=== PATIENT | male | born 1995 | race Caucasian/White ===

== ENCOUNTER 2023-03-04 23:05 | Emergency (ER) | payer MEDICAID ==
[~2023-03-04] VITALS: Ht 182.9 cm; Wt 99.0 kg
[2023-03-04 23:29] LABS: Basophils # (auto) 0 10 ^3/uL (0-0.2); Basophils % (auto) 0.5 % (0.0-2.0); Eosinophils # (auto) 0.1 10 ^3/uL (0-0.8); Eosinophils % (auto) 2.4 % (0.0-7.0); Hematocrit 48.3 % (41.0-53.0); Hemoglobin 16.8 g/dL (13.5-17.5); Lymphocytes # (auto) 2.3 10 ^3/uL (0.4-5.4); Lymphocytes % (auto) 39.9 % (10.0-50.0); Mean Corpuscular Hemoglobin 29.9 pg (28.0-32.0); Mean Corpuscular Hgb Conc. 34.9 g/dL (32.0-36.0); Mean Corpuscular Volume 85.7 fL (80.0-100.0); Monocytes # (auto) 0.5 10 ^3/uL (0-1.3); Monocytes % (auto) 9.2 % (0.0-12.0); Neutrophils # (auto) 2.8 10 ^3/uL (1.6-8.6); Nucleated Red Blood Cells % 0.2 %; Red Blood Cells 5.64 10^6/uL (4.5-5.90); Red Cell Distribution Width 13.4 % (11.8-14.3); White Blood Cell 5.8 10^3/uL (4.4-10.8)
[2023-03-04 23:47] LABS: Albumin 4.3 g/dL (3.4-5.0); BUN/Creatinine Ratio 18.5 (10.0-20.0); Calcium 9.7 mg/dL (8.5-10.1); Magnesium 2.3 mg/dL (1.6-2.6)
[2023-03-04 23:50] LABS: Bilirubin, Total 0.7 mg/dL (0.2-1.0)
[2023-03-04 23:52] LABS: INR 1.02 (0.9-1.15); Partial Thromboplastin Time 28.6 sec (24.6-33.4)
[2023-03-05 05:38] VITALS: BP 104/67
== END 2023-03-05 05:48 | disposition home or self-care (01) ==
LOC: ER 23:05
DX: R07.89 Other chest pain (principal); R06.02 Shortness of breath; Z79.899 Other long term (current) drug therapy
CPT/HCPCS: 36415; 71045; 80053; 83735; 83880; 84484; 85025; 85610; 85730; 93005

== ENCOUNTER 2024-09-14 19:05 | Emergency (ER) | payer MEDICAID ==
[~2024-09-14] VITALS: Ht 182.9 cm; Wt 109.0 kg
--- NOTE | 2024-09-14 19:41 | ED.PDOC ---
History of Present Illness HPI Comments 28 y/o M, with a Hx of marijuana use, presents with c/o left ankle and foot pain, swelling, and deformity s/p fall injury, today. Patient endorses on falling and and landing and injuring his left foot and ankle after jumping of a wall, while playing with his pet dog at home, at around 1820, today. Patient re ports no additional injuries, lost of consciousness, or prior symptoms at time of incident. Patient informs of no additional pertinent or relevant Hx. Denies having any weakness, numbness, tingling, or other associated symptoms or modifiers at this time. Time Seen by MD: 19:30 Primary Care Provider: unknown Reviewed Notes: Nurses Notes, Medications, Allergies Allergies: Coded Allergies: NO KNOWN ALLERGIES (Unverified , 03/04/23) Information Source: Patient Mode of Arrival: Wheelchair Severity: Moderate Timing: Hours Duration: Since onset Prehospital treatment: None Past Medical History PAST MEDICAL HISTORY: Denies Surgical History: Denies all surgeries Family History Family History: Reviewed,noncontributory to illness, No family hx of Cancer, No family hx of Heart devi, No family hx ofKidney devi, No family hx of Liver devi, No family hx of Lung devi, No family hx of Stroke, Unknown, Family hx of DM, Family hx of HTN Family History (Other): HLD Social History Smoker: Non-Smoker Alcohol: Denies ETOH Use Drugs: Marijuana Lives In: Home Constitutional: denies: chills, diaphoresis, fatigue, fever, malaise, sweats, weakness, others EENTM: denies: blurred vision, double vision, ear bleeding, ear discharge, ear drainage, ear pain, ear ringing, eye pain, eye redness, hearing loss, mouth pain, mouth swelling, nasal discharge, nose bleeding, nose congestion, nose pain, photophobia, tearing, throat pain, throat swelling, voice changes, others Respiratory: denies: cough, hemoptysis, orthopnea, SOB at rest, shortness of breath, SOB with excertion, stridor, wheezing, others Cardiovascular: denies: chest pain, dizzy spells, diaphoresis, Dyspnea on exertion, edema, irregular heart beat, left arm pain, lightheadedness, palpitations, PND, syncope, others Gastrointestinal: denies: abdomen distended, abdominal pain, blood streaked bowels, constipated, diarrhea, dysphagia, difficulty swallowing, hematemesis, melena, nausea, poor appetite, poor fluid intake, rectal bleeding, rectal pain, vomiting, others Genitourinary: denies: burning, dysuria, flank pain, frequency, hematuria, incontinence, penile discharge, penile sore, pain, testicle pain, testicle swelling, urgency, others Neurological: denies: dizziness, fainting, headache, left sided numbness, left sided weakness, numbness, paresthesia, pre-existing deficit, right sided numbnes s, right sided weakness, seizure, speech problems, tingling, tremors, weakness, others Musculoskeletal: reports: others (left ankle and foot pain, swelling, and deformity); denies: back pain, gout, joint pain, joint swelling, muscle pain, muscle stiffness, neck pain Integumetry: denies: bruises, change in color, change in hair/nails, dryness, laceration, lesions, lumps, rash, wounds, others Allergic/Immunocompromised: denies: Difficulty Healing, Frequent Infections, Hives, Itching, others Hematologic/Lymphatic: denies: anemia, blood clots, easy bleeding, easy bruising, swollen glands, others Endocrine: denies: excessive hunger, excessive sweating, excessive thirst, excessive urination, flushing, intolerance to cold, intolerance to heat, unexplained weight gain, unexplained weight loss, others Psychiatric: denies: anxiety, bipolar disorder, depression, hopeless, panic disorder, schizophrenia, sleepless, suicidal, others All Other Systems: Reviewed and Negative Physical Exam General Appearance: Mild Distress HEENT: Normal ENT Inspection, Pharynx Normal, TMs Normal Neck: Full Range of Motion, Non-Tender, Normal, Normal Inspection Respiratory: Chest Non-Tender, Lungs Clear, No Accessory Muscle Use, No Respiratory Distress, Normal Breath Sounds Cardiovascular: No Edema, No JVD, No Murmur, No Gallop, Normal Peripheral Pulses, Regular Rate/Rhythm Breast Exam: Deferred Gastrointestinal: No Organomegaly, Non Tender, No Pulsatile Mass, Normal Bowel Sounds, Soft Genitalia: Deferred Pelvic: Deferred Rectal: Deferred Extremities: No calf tenderness, Normal capillary refill, No pedal edema Musculoskeletal : Location: Left Extremity Location: Ankle Apperance: Swelling, Limited ROM, Tenderness: Moderate Neurologic: Alert, industrial workers II-XII nml as Tested, No Motor Deficits, Normal Affect, Normal Mood, No Sensory Deficits Cerebellar Function: Normal Reflexes: Normal Skin: Dry, Normal Color, Warm Lymphatic: No Adenopathy Was a procedure done? Was a procedure done?: No Differential Dx Considerations may include: dislocation, fracture, contusion, bruising X-Ray, Labs, Meds, VS Vital Signs Date Time Temp Pulse Resp B/P (MAP) Pulse Ox O2 Delivery O2 Flow Rate FiO2 09/14/24 19:41 98.7 98 20 124/79 (94) 99 X-ray of the left ankle shows: IMPRESSION: 1. Moderate soft tissue swelling overlying the lateral malleolus. 2. Tiny sclerotic foci projecting inferior to the medial malleolus which could be fracture fragments of unknown chronicity, correlate with point tenderness in this location At this time, the patient was placed in the posterior and stirrup splint. At this time, the patient was given crutches and gait training The patient will follow up with his primary care doctor for a referral to the orthopedic surgeon Images Reviewed?: Images reviewed and evaluated by me Time of 1ST Reevaluation: 20:00 Reevaluation 1ST: Unchanged Patient Education/Counseling: Diagnosis, Treatment, Prognosis, Need For Follow Up Family Education/Counseling: No Family Present Departure 1 Departure Time of Disposition: 20:32 Impression: Primary Impression: Closed left ankle fracture Qualified Codes: S82.892A - Other fracture of left lower leg, initial encounter for closed fracture Disposition: 01 HOME / SELF CARE / HOMELESS Condition: Fair Discharged With: Self Critical Care Note Critical Care Time?: No Stability Stability form required: No Heart Score Heart Score: Heart Score Response (Comments) Value History N/A 0 EKG N/A 0 Age N/A 0 Risk Factors N/A 0 Troponin N/A 0 Total 0 I personally scribed for ZARA OAKLEY MD ([email or web address]) on 09/14/24 at 19:41. Electronically submitted by Kunal Garcia ([email or web address]). AZRA OAKLEY MD Sep 14, 2024 19:41
--- NOTE | 2024-09-14 20:24 | DVH ---
XY L ANKLE 3 VIEW, INDICATION: trauma TECHNICAL DATA:Frontal , oblique and lateral views were obtained of the left ankle. COMPARISON: XY R HAND 3 VIEW XRAY on DOS: 03/05/24 FINDINGS: Normal mineralization and alignment. Ankle mortise is intact. Tiny sclerotic foci projecting inferio r to the medial malleolus. Moderate soft tissue swelling overlies the lateral malleolus. Note is mad e of an os trigonum. No radiopaque foreign body. IMPRESSION: 1. Moderate soft tissue swelling overlying the lateral malleolus. 2. Tiny sclerotic foci projecting inferior to the medial malleolus which could be fracture fragments of unknown chronicity, correlate with point tenderness in this location
[2024-09-14] MEDS ORDERED: TRAM50TA2 PO (20:34)
[2024-09-14 21:14] VITALS: BP 114/73; PULSE 82; RESP 18; TEMP 98.1; O2SAT 99
[2024-09-14] MEDS: HYDROcodone-ACET 10/325MG TAB PO ONE (21:21)
== END 2024-09-14 21:54 | disposition home or self-care (01) ==
LOC: ER 19:05
DX: S82.892A Other fracture of left lower leg, initial encounter for closed fracture (principal); F12.10 Cannabis abuse, uncomplicated; W18.09XA Striking against other object with subsequent fall, initial encounter; Y93.39 Activity, other involving climbing, rappelling and jumping off; Y92.89 Other specified places as the place of occurrence of the external cause; Y99.8 Other external cause status
CPT/HCPCS: 29515; 73610